=== PATIENT | male | born 1990 | race Caucasian/White ===

== ENCOUNTER → 2020-06-25 | Outpatient (CLI) | payer OTHER ==
[~2020-06-25] MED LIST: BENTYL 10MG CAP10 MG PO; BENTYL 20MG TAB20 MG PO; BREO ELLIPTA 11 EACH INH; CLEOCIN HCL300 MG PO; COLACE100 MG PO; HYDROCODON-ACE1 EAC2 PO; HYDROCODON-ACE1 EAC4 PO; NAPROSYN500 MG PO; PEPCID20 MG PO; VENTOLIN HFA 66.7 GM INH; ZOFRAN ODT 4 MG4 MG PO; ZOFRAN4 MG PO
== END ==
LOC: EXRD 13:14
DX: M25.512 Pain in left shoulder (principal); M19.012 Primary osteoarthritis, left shoulder
CPT/HCPCS: 73030

== ENCOUNTER 2020-06-30 09:36 | Emergency (ER) | payer OTHER ==
[~2020-06-30 09:36] MED LIST changes: -BENTYL 10MG CAP10 MG PO; -BENTYL 20MG TAB20 MG PO; -BREO ELLIPTA 11 EACH INH; -COLACE100 MG PO; -HYDROCODON-ACE1 EAC2 PO; -HYDROCODON-ACE1 EAC4 PO; -PEPCID20 MG PO; -VENTOLIN HFA 66.7 GM INH; -ZOFRAN ODT 4 MG4 MG PO; -ZOFRAN4 MG PO
[2020-06-30 10:59] LABS: HEMOGLOBIN 16.7 gm/dl (14.0-17.5); RED BLOOD COUNT 5.47 M/UL (4.20-5.50)
[2020-06-30 11:08] LABS: BUN/CREATININE RATIO 11 (0-10)
[2020-06-30] MEDS ORDERED: BENTYL 20MG TAB20 MG PO (12:27)
[2020-06-30] MEDS ORDERED: ZOFRAN4 MG PO (12:27)
[2020-07-14] MEDS ORDERED: BREO ELLIPTA 11 EACH INH (08:31)
[2020-07-14] MEDS ORDERED: VENTOLIN HFA 66.7 GM INH (08:31)
[2020-07-14] MEDS ORDERED: HYDROCODON-ACE1 EAC2 PO ×2 (11:09→15:03)
[2020-07-14] MEDS ORDERED: COLACE100 MG PO (11:09)
== END 2020-06-30 12:59 | disposition home or self-care (01) ==
LOC: ER1 09:36
PROVIDERS: Physician Assistant
DX: K80.70 Calculus of gallbladder and bile duct without cholecystitis without obstruction (principal); K76.0 Fatty (change of) liver, not elsewhere classified; J45.909 Unspecified asthma, uncomplicated; F17.200 Nicotine dependence, unspecified, uncomplicated; Z90.49 Acquired absence of other specified parts of digestive tract
CPT/HCPCS: 80053; 81001; 82150; 83690; 85025; 96374; 96375; 99284; J2270; J2405; Q9967

== ENCOUNTER 2020-07-03 15:24 | Emergency (ER) | payer OTHER ==
[~2020-07-03 15:24] MED LIST changes: +BENTYL 20MG TAB20 MG PO; +ZOFRAN4 MG PO
[2020-07-03 16:23] LABS: HEMOGLOBIN 16.5 gm/dl (14.0-17.5); RED BLOOD COUNT 5.23 M/UL (4.20-5.50); WHITE BLOOD COUNT 8.5 K/UL (4.5-11.0)
[2020-07-03 16:49] LABS: BUN/CREATININE RATIO 16 (0-10)
[2020-07-03] MEDS ORDERED: PEPCID20 MG PO (20:40)
[2020-07-03] MEDS ORDERED: BENTYL 10MG CAP10 MG PO (20:40)
[2020-07-03] MEDS ORDERED: ZOFRAN ODT 4 MG4 MG PO (20:40)
[2020-07-03] MEDS ORDERED: HYDROCODON-ACE1 EAC4 PO (20:44)
[2020-07-14] MEDS ORDERED: BREO ELLIPTA 11 EACH INH (08:31)
[2020-07-14] MEDS ORDERED: VENTOLIN HFA 66.7 GM INH (08:31)
[2020-07-14] MEDS ORDERED: COLACE100 MG PO (11:09)
[2020-07-14] MEDS ORDERED: HYDROCODON-ACE1 EAC2 PO ×2 (11:09→15:03)
== END 2020-07-03 21:00 | disposition home or self-care (01) ==
LOC: ER1 15:24
PROVIDERS: Nurse Practitioner
DX: K80.70 Calculus of gallbladder and bile duct without cholecystitis without obstruction (principal); J45.909 Unspecified asthma, uncomplicated; F17.210 Nicotine dependence, cigarettes, uncomplicated; Z79.899 Other long term (current) drug therapy
CPT/HCPCS: 80053; 81001; 83605; 83690; 85025; 96365; 96375; 99284; J1885; J2270; J2405; J7030

== ENCOUNTER → 2020-07-14 | Day surgery (SDC) | payer OTHER ==
[~2020-07-14] MED LIST changes: +BENTYL 10MG CAP10 MG PO; +BREO ELLIPTA 11 EACH INH; +COLACE100 MG PO; +HYDROCODON-ACE1 EAC2 PO; +HYDROCODON-ACE1 EAC4 PO; +PEPCID20 MG PO; +VENTOLIN HFA 66.7 GM INH; +ZOFRAN ODT 4 MG4 MG PO
== END | disposition home or self-care (01) ==
LOC: OR 07:52 → ZOBSOF 07:52 → EDSTATUS 10:30 → ZOBSOF 11:07
DX: K80.10 Calculus of gallbladder with chronic cholecystitis without obstruction (principal); J45.909 Unspecified asthma, uncomplicated; F31.9 Bipolar disorder, unspecified; E55.9 Vitamin D deficiency, unspecified; F17.210 Nicotine dependence, cigarettes, uncomplicated; F41.9 Anxiety disorder, unspecified; F12.90 Cannabis use, unspecified, uncomplicated; E66.01 Morbid (severe) obesity due to excess calories; M19.90 Unspecified osteoarthritis, unspecified site; Z91.5 Personal history of self-harm; Z79.899 Other long term (current) drug therapy; G43.909 Migraine, unspecified, not intractable, without status migrainosus; Z91.018 Allergy to other foods; Z90.49 Acquired absence of other specified parts of digestive tract; Z98.890 Other specified postprocedural states
CPT/HCPCS: 0; J0690; J1100; J1170; J2001; J2250; J2405; J2704; J2710; J3010; J7030; J7120

== ENCOUNTER 2020-07-20 22:11 | Emergency (ER) | payer OTHER ==
[2020-07-20 22:36] LABS: HEMOGLOBIN 16.2 gm/dl (14.0-17.5); RED BLOOD COUNT 5.05 M/UL (4.20-5.50); WHITE BLOOD COUNT 8.7 K/UL (4.5-11.0)
[2020-07-20 22:53] LABS: BUN/CREATININE RATIO 10 (0-10)
== END 2020-07-21 01:20 | disposition home or self-care (01) ==
LOC: ER1 22:11
PROVIDERS: Physician Assistant
DX: R10.811 Right upper quadrant abdominal tenderness (principal); R11.0 Nausea; F17.210 Nicotine dependence, cigarettes, uncomplicated; J45.909 Unspecified asthma, uncomplicated; Z90.49 Acquired absence of other specified parts of digestive tract
CPT/HCPCS: 80053; 83690; 85025; 96374; 96375; 96376; 99284; J1885; J2270; J2405; J7030; Q9967